=== PATIENT | female | born 1935 | race Hispanic/Latino ===

== ENCOUNTER 2017-11-16 14:23 | Emergency (ER) | payer MEDICARE ==
[2017-11-16 15:05] LABS: BASOPHILS % (AUTO) 0.5 % (0.0-5.0); EOSINOPHILS % (AUTO) 0.7 % (0.0-8.0); MEAN CORPUSCULAR HGB CONC 33.9 g/dL (32.0-36.0); MEAN CORPUSCULAR VOLUME 88.3 fL (79-99); MONOCYTES % (AUTO) 7.5 % (3.0-13.0); NEUTROPHILS % (AUTO) 73.3 % (40.0-77.0); PLATELET COUNT (AUTO) 256 K/uL (130-400); RED BLOOD CELL COUNT(AUTO) 3.97 MIL/uL (4.00-5.50); RED CELL DISTRIBUTION WIDTH 14.1 % (11.0-15.5); WHITE BLOOD COUNT (AUTO) 12.8 K/uL (4.8-10.8)
[2017-11-16 15:11] LABS: APPEARANCE,URINE Clear (CLEAR); BILIRUBIN,URINE Negative (NEGATIVE); COLOR,URINE STRAW (YELLOW); GLUCOSE, URINE (UA) Negative (NEGATIVE); KETONES,URINE Negative (NEGATIVE); LEUKOCYTE ESTERASE ,URINE Small (NEGATIVE); NITRATE,URINE Negative (NEGATIVE); OCCULT BLOOD,URINE Negative (NEGATIVE); PH,URINE 6.5 (5.0-8.0); PROTEIN,URINE Negative (NEGATIVE); UROBILINOGEN,URINE 0.2 mg/dL (0.2-1.0)
[2017-11-16 15:16] LABS: INR 0.9 (0.85-1.15); PARTIAL THROMBOPLASTIN TIME 26.6 SEC (26.3-35.5); PROTHROMBIN TIME 9.5 SEC (9.6-11.6)
[2017-11-16 15:18] LABS: ALBUMIN 3.5 g/dL (3.5-5.0); BILIRUBIN,TOTAL 0.1 mg/dL (0.2-1.0); TOTAL PROTEIN, SERUM 7.4 g/dL (6.0-8.3)
[2017-11-16 15:42] LABS: BACTERIA,URINE Rare /HPF (None Seen); RBC,URINE None Seen /HPF (0-1); SQUAMOUS EPITHELIAL CELL,UR 0-2 /HPF (0-2); WBC,URINE 0-1 /HPF (0-1)
[2017-11-16] MEDS ORDERED: POTASSIUM BICARB/CIT AC 25 MEQ TABLET.EFF ONE (15:46)
[2017-11-16] MEDS ORDERED: LORAZEPAM 2 MG/ML 1 ML VIAL ONE (15:47)
[2017-11-16] MEDS ORDERED: ACETAMINOPHEN EXTRA STRENGTH 500 MG TABLET ONE (17:21)
== END 2017-11-16 18:40 | disposition home or self-care (01) ==
LOC: EDH 14:23
DX: I10 Essential (primary) hypertension (principal); M79.7 Fibromyalgia; R79.1 Abnormal coagulation profile; F41.9 Anxiety disorder, unspecified; Z79.899 Other long term (current) drug therapy
CPT/HCPCS: 36415; 80053; 81001; 84484; 85025; 85610; 85730; 93005; 96374; 99285; J2060

== ENCOUNTER → 2018-07-22 | Outpatient (CLI) | payer MEDICARE | END | disposition home or self-care (01) | LOC: RAH 12:50 | PROVIDERS: ATTEND Family Medicine | DX: R51 Headache (principal) | CPT/HCPCS: 70450 ==

== ENCOUNTER 2021-10-17 21:20 | Emergency (ER) | payer MEDICARE ==
[~2021-10-17] VITALS: Ht 149.9 cm; Wt 63.5 kg
[2021-10-17 21:50] LABS: BASOPHILS % (AUTO) 0.2 % (0.0-5.0); EOSINOPHILS % (AUTO) 1.1 % (0.0-8.0); HEMATOCRIT 37.7 % (36-48); LYMPHOCYTES % (AUTO) 2.9 % (21.0-51.0); MEAN CORPUSCULAR HEMOGLOBIN 29.1 pg (27.0-33.0); MEAN CORPUSCULAR HGB CONC 31.8 g/dL (32.0-36.0); MEAN CORPUSCULAR VOLUME 91.5 fL (79-99); MONOCYTES % (AUTO) 6.1 % (3.0-13.0); NEUTROPHILS % (AUTO) 89.2 % (40.0-77.0); PLATELET COUNT (AUTO) 264 K/uL (130-400); RED BLOOD CELL COUNT(AUTO) 4.12 MIL/uL (4.00-5.50); RED CELL DISTRIBUTION WIDTH 13.9 % (11.0-15.5); WHITE BLOOD COUNT (AUTO) 18.5 K/uL (4.8-10.8)
[2021-10-17 21:59] LABS: POTASSIUM 3.8 mmol/L (3.5-5.1)
[2021-10-17 22:02] LABS: APPEARANCE,URINE Clear (CLEAR); BILIRUBIN,URINE Negative (NEGATIVE); COLOR,URINE Yellow (YELLOW); GLUCOSE, URINE (UA) Negative (NEGATIVE); KETONES,URINE Negative (NEGATIVE); LEUKOCYTE ESTERASE ,URINE Negative (NEGATIVE); NITRATE,URINE Negative (NEGATIVE); OCCULT BLOOD,URINE Negative (NEGATIVE); PROTEIN,URINE POS 1+ mg/dL (NEGATIVE)
[2021-10-17 22:04] LABS: ALBUMIN 3.7 g/dL (3.5-5.0); BILIRUBIN,TOTAL 0.6 mg/dL (0.2-1.0); TOTAL PROTEIN, SERUM 7.3 g/dL (6.0-8.3)
[2021-10-17 22:13] LABS: BACTERIA,URINE Rare /HPF (None Seen); MUCUS,URINE Few LPF (None Seen); RBC,URINE 0-1 /HPF (0-1); SQUAMOUS EPITHELIAL CELL,UR Rare /HPF (0-2); WBC,URINE 0-1 /HPF (0-1)
[2021-10-17] MEDS: KETOROLAC 15MG/ML VIAL (15MG/ML) IV ONE (22:58)
[2021-10-17] MEDS: ONDANSETRON 4MG INJ IVP ONE (22:58)
[2021-10-17] MEDS: 0.9%NACL 1000ML 1,000 ML IV ONE (22:58)
[2021-10-17] MEDS: MORPHINE 2 MG SYG IVP ONE (22:58)
[2021-10-17 23:42] VITALS: BP 160/46
[2021-10-18] MEDS ORDERED: ONDA4TAB10 PO (00:28)
[2021-10-18] MEDS ORDERED: ACET-66 PO (00:28)
== END 2021-10-18 00:44 | disposition home or self-care (01) ==
LOC: EDH 21:20
DX: A05.9 Bacterial foodborne intoxication, unspecified (principal); E86.0 Dehydration; I10 Essential (primary) hypertension; Z88.0 Allergy status to penicillin; Z88.1 Allergy status to other antibiotic agents; Z88.2 Allergy status to sulfonamides; Z79.1 Long term (current) use of non-steroidal anti-inflammatories (NSAID)
CPT/HCPCS: 36415; 80053; 81001; 83690; 85025; 96374; 96375; 99284; J1885; J2405

== ENCOUNTER 2022-03-03 14:20 | Emergency (ER) | payer MEDICARE, OTHER ==
[~2022-03-03] VITALS: Ht 144.8 cm; Wt 60.8 kg
[~2022-03-03 14:20] MED LIST: ACET-66 PO; ONDA4TAB10 PO
[2022-03-03] MEDS ORDERED: ACETAMINOPHEN 500 MG TABLET PO SCH (14:37)
[2022-03-03] MEDS ORDERED: BACITRACIN 1 EACH PACKET TP ONE (15:34)
[2022-03-03] MEDS ORDERED: NAPR375T6 PO (15:44)
[2022-03-03 15:48] VITALS: BP 139/91
== END 2022-03-03 16:01 | disposition home or self-care (01) ==
LOC: EDH 14:20
DX: S86.912A Strain of unspecified muscle(s) and tendon(s) at lower leg level, left leg, initial encounter (principal); S76.912A Strain of unspecified muscles, fascia and tendons at thigh level, left thigh, initial encounter; M54.50 Low back pain, unspecified; I10 Essential (primary) hypertension; Z79.899 Other long term (current) drug therapy; Z88.0 Allergy status to penicillin; Z88.1 Allergy status to other antibiotic agents; Z88.2 Allergy status to sulfonamides; W18.39XA Other fall on same level, initial encounter; Y93.89 Activity, other specified; Y92.89 Other specified places as the place of occurrence of the external cause; Y99.8 Other external cause status
CPT/HCPCS: 72100; 73502; 73562

== ENCOUNTER 2024-07-16 09:46 | Emergency (ER) | payer OTHER, MEDICARE ==
[~2024-07-16] VITALS: Ht 152.4 cm; Wt 54.4 kg
[~2024-07-16 09:46] MED LIST changes: +ACET-2247 PO; -ACET-66 PO; +ALPR0.5T8 PO; +ASPI-1197 PO; +ATOR40TA71 PO; +BUSP5TAB3 PO; +DOCU100C33 PO; +DONE5TAB5 PO; +FAMO20TA8 PO; +FERS325 PO; +FURO40TA5 PO; +GABA-529 PO; +HYDR-3421 PO; +ISOS30TA11 PO; +LACT10SO9 PO; +MEGE40TA8 PO; +MEMANtine HCL 5 MG TABLET PO; +METO25TA6 PO; +NITR0.4T50 SL; +ONDA-104 PO; -ONDA4TAB10 PO; +PANT20TA18 PO; +POTA10CA95 PO; +[UNRECOGNIZED DRUG - OTHER]
--- NOTE | 2024-07-16 10:17 | ERN ---
ED Note History of Present Illness Stated Complaint: ALTERED MENTAL STATUS Chief Complaint: Altered Mental Status Time Seen by MD: 10:03 Dictation: PATIENT IS AN 88-YEAR-OLD FEMALE HERE VIA EMS WITH COMPLAINTS OF HAVING ALTERED MENTAL STATUS WHILE AT THE [facility]. PATIENT IS UNABLE TO PROVIDE ANY HISTORY. PER EMS, PATIENT WAS FOUND LETHARGIC WITH PINPOINT PUPILS, THEY GAVE HER NARCAN AND SHE PERKED UP. PATIENT CURRENTLY ALERT WE WILL ANSWER SIMPLE QUESTIONS AND DENIES PAIN HOWEVER UNABLE TO PROVIDE ANY EXTENSIVE HISTORY. 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 Allergies: Coded Allergies: Penicillins (Unverified Allergy, Unknown, 10/17/21) Sulfa (Sulfonamide Antibiotics) (Unverified Allergy, Unknown, 10/17/21) bisacodyl (Unverified Allergy, Unknown, 10/17/21) ciprofloxacin (Unverified Allergy, Unknown, 10/17/21) doxycycline (Unverified Allergy, Unknown, 10/17/21) egg (Unverified Allergy, Unknown, 10/17/21) influenza virus vacc trivalent, split (Unverified Allergy, Unknown, 10/17/21) levofloxacin (Unverified Allergy, Unknown, 10/17/21) Home Meds Active Scripts [MEMANtine HCL 5 MG TABLET] 5 MG TABLET No Conflict Check, 10 MG PO BID for 30 Days, #60 TAB 0 Refills Prov:ELIEZER RUSSELL TRIMMER MACHINE OPERATOR 05/14/24 Donepezil HCl (Aricept 5Mg Tab) 5 Mg Tab, 5 MG PO HS, #30 TAB Prov:ELIEZER RUSSELL TRIMMER MACHINE OPERATOR 05/14/24 Reported Medications Acetaminophen (Tylenol) 325 Mg Tablet, 650 MG PO Q4HPRN PRN for PAIN LEVEL 2 TO 5, TAB 05/12/24 Potassium Chloride (Potassium Chloride) 10 Meq Capsule.er, 1 CAP PO DAILY, 0 Refills 05/12/24 Pantoprazole Sodium (Pantoprazole Sodium) 20 Mg Tablet.dr, 1 TAB PO DAILY, TAB 0 Refills 05/12/24 Ondansetron HCl (Ondansetron HCl) 4 Mg Tablet, 1 TAB PO Q6HPRN PRN for nausea/vomiting 05/12/24 Nitroglycerin (Nitroglycerin) 0.4 Mg Tab.subl, 1 TAB SL AD for chest pain 1st sign of attack; may repeat every 5 mins; if pain persists after 3 in 15 min, medical attention is recommended 05/12/24 Metoprolol Tartrate (Metoprolol Tartrate) 25 Mg Tablet, 1 TAB PO BID 05/12/24 Megestrol Acetate (Megace) 40 Mg Tab, 400 MG PO DAILY, TAB 05/12/24 [maalox ad] No Conflict Check 05/12/24 Lactulose (Lactulose) 20 Gram/30 Ml Solution, 30 ML PO TID PRN for CONSTIPATION 05/12/24 Isosorbide Dinitrate (Isosorbide Dinitrate) 30 Mg Tablet, 1 TAB PO DAILY for chest pain 05/12/24 Hydroxyzine HCl (Hydroxyzine HCl) 25 Mg Tablet, 1 TAB PO TID for anxiety 05/12/24 Gabapentin (Gabapentin) 100 Mg Capsule, 100 MG PO HS, CAP 05/12/24 Furosemide (Furosemide) 40 Mg Tablet, 1 TAB PO BIDRESP 05/12/24 Ferrous Sulfate (Ferrous Sulfate) 325 Mg (65 Mg Iron) Ectab, 1 TAB PO DAILY 05/12/24 Buspirone HCl (Buspirone HCl) 5 Mg Tablet, 5 MG PO TID, TAB 05/12/24 Atorvastatin Calcium (Atorvastatin Calcium) 40 Mg Tablet, 1 TAB PO HS 05/12/24 Aspirin (Aspirin) 81 Mg Tab.chew, 1 TAB PO DAILY 05/12/24 Alprazolam (Alprazolam) 0.5 Mg Tablet, 0.25 MG PO Q24H PRN for AGITATION, TAB 04/02/24 Docusate Sodium (Docusate Sodium) 100 Mg Capsule, 100 MG PO HS PRN for CONST IPATION, CAP 04/02/24 Famotidine (Famotidine) 20 Mg Tablet, 20 MG PO BID, TAB 04/02/24 Past Medical History Past Medical History: Dementia, High Cholesterol, Hypertension Surgical History: Unknown Social History: Negative, Lives with family History: Not Applicable RN Note Reviewed/Agreed w/PFSH: Yes Review of System Dictation CONSTITUTIONAL: NEGATIVE EXCEPT FOR HPI AMS HEAD/FACE: NEGATIVE EXCEPT FOR HPI EENT: NEGATIVE EXCEPT FOR HPI RESPIRATORY: NEGATIVE EXCEPT FOR HPI GASTROINTESTINAL/ABDOMINAL: NEGATIVE EXCEPT FOR HPI GENITOURINARY: NEGATIVE EXCEPT FOR HPI MUSCULOSKELETAL: NEGATIVE EXCEPT FOR HPI INTEGUMENTARY: NEGATIVE EXCEPT FOR HPI NEUROLOGICAL/PSYCH: NEGATIVE EXCEPT FOR HPI HEMATOLOGIC/LYMPHATIC: NEGATIVE EXCEPT FOR HPI ALL SYSTEMS NEGATIVE, EXCEPT NOTED ABOVE. 13 POINT REVIEW OF SYSTEMS ASSESSED AND ALL NEGATIVE EXCEPT FOR ABOVE. Initial Vital Sign VS Vital Signs Date Time Temp Pulse Resp B/P (MAP) Pulse Ox O2 Delivery O2 Flow Rate FiO2 07/16/24 09:48 98.2 49 18 149/54 97 Room Air 0 07/16/24 10:29 21 Physical Exam Dictation VITAL SIGNS REVIEWED GENERAL APPEARANCE: ALERT, ORIENTED ONE, NO ACUTE DISTRESS, APPEARS WEAK AND DEBILITATED HEAD AND FACE: NON-TRAUMATIC. EYES: PERRL, PINK CONJUNCTIVAS, EYELID NO TRAUMA, ANTERIOR CHAMBER WITH ARCUS SENILIS. EARS: PINNAS INTACT AND NO SIGNS OF TRAUMA OR ERYTHEMA EAR CANALS CLEAR AND NO DISCHARGE TM NO ERYTHEMA NOSE: NO DISCHARGE, NO BLEEDING. OROPHARYNX: MOUTH NORMAL, TONGUE PINK, PHARYNX CLEAR,NO ERYTHEMA, TONSILS NO EXUDATES, NO ABSCESSES NOTED, MUCOUS MEMBRANE MOIST NECK: SUPPLE, NON-TENDER, NO THYROMEGALY, NO MASSES, NO JVD, NO BRUITS BREAST:DEFERRED CHEST:NO TENDERNESS, NO CREPITUS, NO PARADOXICAL MOVEMENT, NO RETRACTIONS LUNGS:CLEAR, WELL-VENTILATED, SYMMETRIC, NO RALES, NO WHEEZING, NO RHONCHI, NO STRIDOR, GOOD BREATH SOUNDS BILATERALLY HEART: REGULAR RATE, REGULAR RHYTHM, NO MURMUR, NO GALLOPS VASCULAR: NO PERIPHERAL EDEMA, ABDOMEN: SOFT, POSITIVE BOWEL SOUNDS, NONDISTENDED, NO GUARDING, NONTENDER, NO REBOUND, NO MASSES NO HEPATOMEGALY, NO SPLENOMEGALY, NO RUIZ'S SIGN, NO HERNIAS. RECTAL: DEFERRED GENITAL: DEFERRED NEUROLOGICAL: NORMAL SPEECH, MOTOR FUNCTION INTACT, SENSORY FUNCTION INTACT GB WM ALL EXTREMITIES MUSCULOSKELETAL: NECK NONTENDER, FULL RANGE OF MOTION, BACK NONTENDER, FULL RANGE OF MOTION, EXTREMITIES: NONTENDER, FULL RANGE OF MOTION SKIN: COLOR PINK, DRY, NO TURGOR, NO RASH, NO LACERATIONS, NO ABRASIONS, NO CONTUSIONS. LYMPHATIC: DEFERRED Results (Laboratory/Radiology) Laboratory/Radiology Laboratory Tests Test 07/16/24 10:51 07/16/24 11:45 White Blood Count 6.2 K/uL (4.8-10.8) Red Blood Count 3.09 MIL/uL (4.00-5.50) L Hemoglobin 9.8 g/dL (12.0-16.0) L Hematocrit 30.2 % (36-48) L Mean Corpuscular Volume 97.7 fL (79-99) Mean Corpuscular Hemoglobin 31.7 pg (27.0-33.0) Mean Corpuscular Hemoglobin Concent 32.5 g/dL (32.0-36.0) Red Cell Distribution Width 14.6 % (11.0-15.5) Platelet Count 183 K/uL (130-400) Mean Platelet Volume 12.5 fL (7.5-10.5) H Immature Granulocyte % (Auto) 0.5 % (0-1) Neutrophils (%) (Auto) 56.9 % (40.0-77.0) Lymphocytes (%) (Auto) 25.4 % (21.0-51.0) Monocytes (%) (Auto) 8.9 % (3.0-13.0) Eosinophils (%) (Auto) 7.6 % (0.0-8.0) Basophils (%) (Auto) 0.7 % (0.0-5.0) Neutrophils # (Auto) 3.5 K/uL (1.8-7.7) Lymphocytes # (Auto) 1.6 K/uL (1.0-4.8) Monocytes # (Auto) 0.6 K/uL (0.1-1.0) Eosinophils # (Auto) 0.47 K/uL (0.00-0.70) Basophils # (Auto) 0.04 K/uL (0.00-0.20) Absolute Immature Granulocyte (auto 0.03 K/uL (0-1) Nucleated Red Blood Cells 0.0 % (0.0-0.19) Sodium Level 147 mmol/L (136-145) H Potassium Level 3.3 mmol/L (3.5-5.1) L Chloride Level 111 mmol/L (101-111) Carbon Dioxide Level 31 mmol/L (21-32) Blood Urea Nitrogen 16 mg/dL (7-18) Creatinine 1.5 mg/dL (0.5-1.0) H Glomerular Filtration Rate Calc 34 mL/min (>90) Random Glucose 108 mg/dL (70-105) H Total Calcium 8.5 mg/dL (8.5-10.1) Troponin I High Sensitivity 45 ng/L (4-50) Urine Color COLORLESS (YELLOW) Urine Appearance CLEAR (CLEAR) Urine pH 6.5 (5.0-8.0) Urine Specific [place] 1.007 (1.001-1.031) Urine Protein NEGATIVE mg/dL (NEGATIVE) Urine Glucose (UA) NEGATIVE mg/dL (NEGATIVE) Urine Ketones NEGATIVE mg/dL (NEGATIVE) Urine Occult Blood NEGATIVE (NEGATIVE) Urine Nitrate NEGATIVE (NEGATIVE) Urine Bilirubin NEGATIVE mg/dL (NEGATIVE) Urine Urobilinogen 0.2 mg/dL (0.2-1.0) Urine Leukocyte Esterase NEGATIVE Nico/uL Labs Reviewed?: Yes EKG Comment: EKG SINUS BRADYCARDIA/HEART RATE 48/AXIS NORMAL/EARLY REPOLARIZATION SEEN IN ANTERIOR LEADS ED Course ED Course Orders Procedure Category Date Status Time Straight Cath If No CPOE 07/16/24 Transmitted Void X6hrs 10:14 Cbc With Differential LAB 07/16/24 Complete 10:14 Troponin I High LAB 07/16/24 Complete Sensitivity 10:14 Urinalysis Profile LAB 07/16/24 Complete 10:14 12 Lead Ekg Tracing- EKG 07/16/24 Logged Technical 10:14 Chest 1vw RAD 07/16/24 Resulted 10:14 Basic Metabolic Panel LAB 07/16/24 Complete 10:14 Potassium Bicarb/Cit PHA 07/16/24 Complete Ac 25meq (K-Lyte Ta 11:30 Current Medications Medications (Trade) Dose Ordered Sig/Sonali Route PRN Reason Start Time Stop Time Status Last Admin Dose Admin Potassium Bicarbonate (K-Lyte Tablet Eff 25 Meq Tablet.eff) 25 meq ONCE ONCE PO 07/16/24 11:30 07/16/24 11:32 DC 07/16/24 11:35 Vital Signs Date Time Temp Pulse Resp B/P (MAP) Pulse Ox O2 Delivery O2 Flow Rate FiO2 07/16/24 11:48 97.5 51 16 128/50 98 Room Air* 0 21 07/16/24 10:29 52 16 139/55 96 Room Air* 0 21 07/16/24 09:48 98.2 49 18 149/54 97 Room Air 0 1207, PATIENT IS HEMODYNAMICALLY STABLE AFEBRILE. MILD HYPOKALEMIA, REPLACED WITH P.O.. NO ABNORMAL FINDINGS AND WE WILL BE RETURNED HOME TO [facility]. HEART Score Response (Comments) Value EKG: Repolarization changes 1 Age: > 65yrs (+2) 2 Initial Troponin: Normal limit (0) 0 Total 3 Medical Decision Making MDM MDM: DIFFERENTIAL DIAGNOSIS: ACS/AMI/SEPSIS/ELECTROLYTE IMBALANCE/DEHYDRATION/UTI/PNEUMONIA/HISTORY OF DEMENTIA RATIONALE: TESTS CONSIDERED AND ORDERED SECONDARY TO SHARED DECISION MAKING INCLUDE: LABS/EKG/RADIOLOGY PREVIOUS OUTSIDE RECORDS REVIEWED: OLD ER VISITS. REVIEWED LAST VISIT [facility] [place] 07/06 RISK OF COMPLICATION AND/OR MORBIDITY OR MORTALITY OF PATIENT MANAGEMENT: NONE MEDICATIONS-PER MEDICATION RECONCILIATION NEED FOR HOSPITALIZATION: PATIENT DOES NOT MEET CRITERIA FOR HOSPITALIZATION. NO NEED FOR EMERGENCY MAJOR/MINOR SURGERY: NO THERE ARE NO SOCIAL CONCERNS WITH THIS PATIENT. PRESCRIPTION DRUG MANAGEMENT NONE PRESCRIPTIONS WILL INCLUDE SYMPTOMATIC CARE PATIENT'S PRIOR EXTERNAL MEDICAL RECORDS FROM OTHER ER VISITS WERE REVIEWED BY ME INDICATED. PRIOR TESTING AND RESULTS FROM PREVIOUS VISITS WERE REVIEWED. PRIOR TESTS WERE TAKEN INTO ACCOUNT WITH MEDICAL DECISION MAKING AND RESOURCE UTILIZATION, INDEPENDENT HISTORIAN/HISTORIANS WERE USED TO OBTAIN COMPLETE MEDICAL HISTORY. I INDEPENDENTLY INTERPRETED THE TEST THAT WERE PERFORMED, RESULTS WERE REVIEWED BY ME AND CONSIDERED FINDINGS ON RADIOLOGY IF ORDERED. MEDICAL MANAGEMENT AND EXAMINATION INTERPRETATION DISCUSSIONS WERE HAD BY ME WITH OTHER QUALIFIED HEALTHCARE PROFESSIONALS INDICATED FOR THE PATIENT'S CARE. DX & DISP Disposition: Discharge Departure Impression: Primary Impression: Hypokalemia Additional Impressions: Dehydration, Dementia Condition: Stable Additional Instructions: FOLLOW-UP WITH PRIMARY CARE PROVIDER IN 1 TO 2 DAYS. TAKE MEDICATIONS DIRECTED HERE IN THE EMERGENCY ROOM. OKAY TO CONTINUE HOME MEDICATIONS UNLESS OTHERWISE DISCUSSED DURING YOUR VISIT IN THE EMERGENCY ROOM TODAY. RETURN TO YOUR NEAREST EMERGENCY ROOM IF SYMPTOMS WORSEN OR IF THERE IS NO IMPROVEMENT. CALL 911 IF YOU NEED IMMEDIATE ASSISTANCE. TAKE TYLENOL OR MOTRIN [id number] NEEDED AND IF NO CONTRAINDICATIONS ARE PRESENT. INCREASE ORAL HYDRATION. A WOUND CULTURE OR URINE CULTURE WAS ORDERED HERE IN THE EMERGENCY ROOM DEPARTMENT PLEASE FOLLOW-UP WITH PRIMARY CARE PROVIDER AND ADVISE THEM TO GET REPEAT PORTS FROM OUR FACILITY. IF YOU HAD ANY BETHANY WRAP/SPLINTS THAT WERE APPLIED HERE, PLEASE DO NOT REMOVE THEM UNTIL YOU SEE YOUR PRIMARY CARE OR SPECIALTY. Referrals: PRANAV XIE MD (PCP) Time of Disposition: 12:09 I have reviewed the case, and I agree with, Diagnosis and Plan LC WRAY NP Jul 16, 2024 10:16
[2024-07-16 11:08] LABS: BASOPHILS # (AUTO) 0.04 K/uL (0.00-0.20); BASOPHILS % (AUTO) 0.7 % (0.0-5.0); EOSINOPHILS # (AUTO) 0.47 K/uL (0.00-0.70); EOSINOPHILS % (AUTO) 7.6 % (0.0-8.0); HEMATOCRIT 30.2 % (36-48); IMMATURE GRANULOCYTE ABSOLUTE 0.03 K/uL (0-1); LYMPHOCYTES # (AUTO) 1.6 K/uL (1.0-4.8); LYMPHOCYTES % (AUTO) 25.4 % (21.0-51.0); MEAN CORPUSCULAR HEMOGLOBIN 31.7 pg (27.0-33.0); MEAN CORPUSCULAR HGB CONC 32.5 g/dL (32.0-36.0); MEAN CORPUSCULAR VOLUME 97.7 fL (79-99); MONOCYTES # (AUTO) 0.6 K/uL (0.1-1.0); MONOCYTES % (AUTO) 8.9 % (3.0-13.0); NEUTROPHILS # (AUTO) 3.5 K/uL (1.8-7.7); NEUTROPHILS % (AUTO) 56.9 % (40.0-77.0); PLATELET COUNT (AUTO) 183 K/uL (130-400); RED BLOOD CELL COUNT(AUTO) 3.09 MIL/uL (4.00-5.50); RED CELL DISTRIBUTION WIDTH 14.6 % (11.0-15.5); WHITE BLOOD COUNT (AUTO) 6.2 K/uL (4.8-10.8)
[2024-07-16 11:10] LABS: CREATININE 1.5 mg/dL (0.5-1.0); POTASSIUM 3.3 mmol/L (3.5-5.1)
--- NOTE | 2024-07-16 11:22 | HMCIMG ---
INDICATION: SOB TECHNIQUE: CHEST 1VW COMPARISON: 07/11/2024 FINDINGS/IMPRESSION: Prominent bilateral interstitial markings which may represent bronchitis or vascular congestion in the proper clinical setting. Cardiac silhouette is within normal limits. Mild degenerative changes of the spine. The visualized upper abdomen appears unremarkable.
[2024-07-16] MEDS: PoTASSium BIcarbonate/CIT AC 25 MEQ TABLET.EFF PO ONE (11:35)
[2024-07-16 11:53] LABS: APPEARANCE,URINE CLEAR (CLEAR); BILIRUBIN,URINE NEGATIVE (NEGATIVE); COLOR,URINE COLORLESS (YELLOW); GLUCOSE, URINE (UA) NEGATIVE (NEGATIVE); KETONES,URINE NEGATIVE (NEGATIVE); LEUKOCYTE ESTERASE ,URINE NEGATIVE Leu/uL (NEGATIVE); NITRATE,URINE NEGATIVE (NEGATIVE); OCCULT BLOOD,URINE NEGATIVE (NEGATIVE); PH,URINE 6.5 (5.0-8.0); PROTEIN,URINE NEGATIVE (NEGATIVE); UROBILINOGEN,URINE 0.2 mg/dL (0.2-1.0)
[2024-07-16 11:58] LABS: ADD UA MICROSCOPIC NO
--- NOTE | 2024-07-16 13:33 | NUR ---
REPORT CALLED TO [facility], SPOKE TO ANAIS VARELA.
--- NOTE | 2024-07-16 13:34 | NUR ---
[facility] AT BEDSIDE FOR TRANSFER TO [facility]
[2024-07-16 13:35] VITALS: BP 154/52; PULSE 54; RESP 16; TEMP 98; O2SAT 99
--- NOTE | 2024-07-16 15:25 | EKG ---
[facility] Test Date: 2024-07-16 Test Time: 10:37:16 Pat Name: LARISSA MARIN Department: [facility] Room: Gender: F Court Commissioner: [id number] : [phone] Requested By: LC WRAY Order Number: [id number] Reading MD: Tarun Cole Measurements Intervals Holt Rate: 48 P: 35 AR: 149 QRS: 15 QRSD: 89 T: 28 QT: 537 QTc: 479 Interpretive Statements Sinus bradycardia Repol abnrm suggests ischemia, anterolateral Compared to ECG 07/06/2024 10:26:32 Sinus rhythm no longer present Ventricular premature complex(es) no longer present Possible ischemia still present Electronically Signed On 07-16-2024 17:02:33 SAWMILL MOULDER OPERATOR by Tarun Cole Please click the below link to view image of tracing.
== END 2024-07-16 13:39 ==
LOC: EDH 09:46
DX: E87.6 Hypokalemia (principal); E86.0 Dehydration; F03.90 Unspecified dementia, unspecified severity, without behavioral disturbance, psychotic disturbance, mood disturbance, and anxiety; E78.00 Pure hypercholesterolemia, unspecified; I10 Essential (primary) hypertension; Z79.82 Long term (current) use of aspirin; Z79.899 Other long term (current) drug therapy; Z88.0 Allergy status to penicillin; Z88.1 Allergy status to other antibiotic agents; Z88.2 Allergy status to sulfonamides
CPT/HCPCS: 36415; 71045; 80048; 81003; 84484; 85025; 93005; 99285

== ENCOUNTER 2024-11-19 08:51 | Observation (INO) | payer OTHER, MEDICARE ==
[2024-11-19] VITALS (7 sets, daily range): BP systolic 150–166; BP diastolic 57–86; PULSE 77–93; RESP 18–20; TEMP 98.3–98.4; O2SAT 97
[~2024-11-19] VITALS: Ht 152.4 cm; Wt 52.2 kg
[~2024-11-19 08:51] MED LIST changes: +MEGE40TA30 PO; -MEGE40TA8 PO
[2024-11-19 09:25] LABS: BASOPHILS # (AUTO) 0.03 K/uL (0.00-0.20); BASOPHILS % (AUTO) 0.3 % (0.0-5.0); EOSINOPHILS # (AUTO) 0.12 K/uL (0.00-0.70); EOSINOPHILS % (AUTO) 1.2 % (0.0-8.0); IMMATURE GRANULOCYTE ABSOLUTE 0.04 K/uL (0-1); LYMPHOCYTES # (AUTO) 1.1 K/uL (1.0-4.8); LYMPHOCYTES % (AUTO) 11.3 % (21.0-51.0); MEAN CORPUSCULAR HEMOGLOBIN 31.8 pg (27.0-33.0); MEAN CORPUSCULAR HGB CONC 33.1 g/dL (32.0-36.0); MEAN CORPUSCULAR VOLUME 95.9 fL (79-99); MONOCYTES # (AUTO) 1.6 K/uL (0.1-1.0); MONOCYTES % (AUTO) 16.3 % (3.0-13.0); NEUTROPHILS # (AUTO) 6.9 K/uL (1.8-7.7); NEUTROPHILS % (AUTO) 70.5 % (40.0-77.0); PLATELET COUNT (AUTO) 207 K/uL (130-400); RED BLOOD CELL COUNT(AUTO) 3.65 MIL/uL (4.00-5.50); RED CELL DISTRIBUTION WIDTH 13.3 % (11.0-15.5); WHITE BLOOD COUNT (AUTO) 9.8 K/uL (4.8-10.8)
[2024-11-19 09:38] LABS: INR 1.04 (0.85-1.15)
[2024-11-19 09:40] LABS: PARTIAL THROMBOPLASTIN TIME 29.3 SEC (26.3-35.5)
[2024-11-19 09:44] LABS: CREATININE 1.7 mg/dL (0.5-1.0); MAGNESIUM 2.3 mg/dL (1.80-2.40); POTASSIUM 3.2 mmol/L (3.5-5.1)
--- NOTE | 2024-11-19 09:45 | HMCIMG ---
CHEST 1VW HISTORY: Chest pain COMPARISON: 07/16/2024 FINDINGS: A frontal projection of the chest was obtained. No acute pulmonary infiltrates is seen. The heart is borderline enlarged. Aortic calcifications are seen. Degenerative changes are seen IMPRESSION: 1. No acute pulmonary infiltrate is seen.
--- NOTE | 2024-11-19 09:55 | ERN ---
General Chief Complaint: Hypotension Stated Complaint: HYPOTENSION Time Seen by MD: 08:53 Source: patient History of Present Illness Initial Comments PATIENT IS A AN 89-YEAR-OLD FEMALE COMING IN TO BE EVALUATED FOR HYPOTENSION. PER EMS PATIENT WAS HE WAS REPORTEDLY HAVING LOW BLOOD PRESSURE EARLIER TODAY. EMS REPORTS BLOOD PRESSURE HAS BEEN WITHIN NORMAL LIMITS. PATIENT WAS A HALF-WAY RESIDENT IN HIS MULTIPLE COMORBIDITIES. PATIENT DOES HAS A HISTORY OF DEMENTIA SO WAS VERY LIMITED ON HISTORY. Allergies: Coded Allergies: Penicillins (Unverified Allergy, Unknown, 10/17/21) Sulfa (Sulfonamide Antibiotics) (Unverified Allergy, Unknown, 10/17/21) bisacodyl (Unverified Allergy, Unknown, 10/17/21) ciprofloxacin (Unverified Allergy, Unknown, 10/17/21) doxycycline (Unverified Allergy, Unknown, 10/17/21) egg (Unverified Allergy, Unknown, 10/17/21) influenza virus vacc trivalent, split (Unverified Allergy, Unknown, 10/17/21) levofloxacin (Unverified Allergy, Unknown, 10/17/21) Home Meds Active Scripts [MEMANtine HCL 5 MG TABLET] 5 MG TABLET No Conflict Check, 10 MG PO BID for 30 Days, #60 TAB 0 Refills Prov:ELIEZER RUSSELL [employer] 05/14/24 Donepezil HCl (Aricept 5Mg Tab) 5 Mg Tab, 5 MG PO HS, #30 TAB Prov:ELIEZER RUSSELL [employer] ENGINE[employer] 05/14/24 Reported Medications Acetaminophen (Tylenol) 325 Mg Tablet, 650 MG PO Q4HPRN PRN for PAIN LEVEL 2 TO 5, TAB 05/12/24 Potassium Chloride (Potassium Chloride) 10 Meq Capsule.er, 1 CAP PO DAILY, 0 Refills 05/12/24 Pantoprazole Sodium (Pantoprazole Sodium) 20 Mg Tablet.dr, 1 TAB PO DAILY, TAB 0 Refills 05/12/24 Ondansetron HCl (Ondansetron HCl) 4 Mg Tablet, 1 TAB PO Q6HPRN PRN for nausea/vomiting 05/12/24 Nitroglycerin (Nitroglycerin) 0.4 Mg Tab.subl, 1 TAB SL AD for chest pain 1st sign of attack; may repeat every 5 mins; if pain persists after 3 in 15 min, medical attention is recommended 05/12/24 Metoprolol Tartrate (Metoprolol Tartrate) 25 Mg Tablet, 1 TAB PO BID 05/12/24 Megestrol Acetate (Megace) 40 Mg Tab, 400 MG PO DAILY, TAB 05/12/24 [maalox ad] No Conflict Check 05/12/24 Lactulose (Lactulose) 20 Gram/30 Ml Solution, 30 ML PO TID PRN for CONSTIPATION 05/12/24 Isosorbide Dinitrate (Isosorbide Dinitrate) 30 Mg Tablet, 1 TAB PO DAILY for chest pain 05/12/24 Hydroxyzine HCl (Hydroxyzine HCl) 25 Mg Tablet, 1 TAB PO TID for anxiety 05/12/24 Gabapentin (Gabapentin) 100 Mg Capsule, 100 MG PO HS, CAP 05/12/24 Furosemide (Furosemide) 40 Mg Tablet, 1 TAB PO BIDRESP 05/12/24 Ferrous Sulfate (Ferrous Sulfate) 325 Mg (65 Mg Iron) Ectab, 1 TAB PO DAILY 05/12/24 Buspirone HCl (Buspirone HCl) 5 Mg Tablet, 5 MG PO TID, TAB 05/12/24 Atorvastatin Calcium (Atorvastatin Calcium) 40 Mg Tablet, 1 TAB PO HS 05/12/24 Aspirin (Aspirin) 81 Mg Tab.chew, 1 TAB PO DAILY 05/12/24 Alprazolam (Alprazolam) 0.5 Mg Tablet, 0.25 MG PO Q24H PRN for AGITATION, TAB 04/02/24 Docusate Sodium (Docusate Sodium) 100 Mg Capsule, 100 MG PO HS PRN for CONSTIPATION, CAP 04/02/24 Famotidine (Famotidine) 20 Mg Tablet, 20 MG PO BID, TAB 04/02/24 Past Medical History Past Medical History: Dementia, High Cholesterol, Hypertension Past Surgical History: Unknown Social History Social History: Negative, Lives with family Female( History) History: Not Applicable ROS Dictation BE ADMITTED DUE TO DEMENTIA Physical Exam Physical Exam Dictation VITAL SIGNS: REVIEWED. GENERAL APPEARANCE: ALERT, ORIENTED X3, NO ACUTE DISTRESS, OBESE. HEAD AND FACE: NON-TRAUMATIC. EYES: PERRL, PINK CONJUNCTIVAS, EYELID NO TRAUMA, ANTERIOR CHAMBER CLEAR. EARS: PINNAS INTACT AND NO SIGNS OF TRAUMA OR ERYTHEMA. EAR CANALS CLEAR AND NO DISCHARGE. TMS NO ERYTHEMA. NOSE: NO DISCHARGE, NO BLEEDING. OROPHARYNX: MOUTH NORMAL, TEETH NO CARIES, TONGUE PINK. PHARYNX CLEAR, NO ERYTHEMA. TONSILS NO EXUDATES, NO ABSCESSES NOTED. MUCOUS MEMBRANE MOIST. NECK: SUPPLE, NON-TENDER, NO THYROMEGALY, NO MASSES, NO JVD, NO BRUITS. BREAST: DEFERRED. CHEST: NO TENDERNESS, NO CREPITUS, NO PARADOXICAL MOVEMENT, NO RETRACTIONS. LUNGS: CLEAR, WELL-VENTILATED, SYMMETRIC, NO RALES, NO WHEEZING, NO RHONCHI, NO STRIDOR, GOOD BREATH SOUNDS BILATERALLY. HEART: REGULAR RATE, REGULAR RHYTHM, NO MURMUR, NO GALLOPS. VASCULAR: NO PERIPHERAL EDEMA. ABDOMEN: SOFT, POSITIVE BOWEL SOUNDS, NONDISTENDED, NO GUARDING, NONTENDER, NO REBOUND, NO MASSES NO HEPATOMEGALY, NO SPLENOMEGALY, NO RUIZ'S SIGN, NO HERNIAS. RECTAL: DEFERRED. GENITAL: DEFERRED. NEUROLOGICAL: NORMAL SPEECH, GROSS MOTOR FUNCTION INTACT, GROSS SENSORY FUNCTION INTACT. MUSCULOSKELETAL: NECK NONTENDER, FULL RANGE OF MOTION, BACK NONTENDER, FULL RANGE OF MOTION. EXTREMITIES: NONTENDER, FULL RANGE OF MOTION. SKIN: COLOR PINK, DRY, NO TURGOR, NO RASH, NO LACERATIONS, NO ABRASIONS, NO CONTUSIONS. LYMPHATICS: DEFERRED. Results Laboratory and Microbiology Lab and Micro Result Laboratory Tests Test 11/19/24 07:23 11/19/24 09:18 11/19/24 10:44 Urine Color LIGHT-RED (YELLOW) Urine Appearance SLIGHTLY CLOUDY (CLEAR) Urine pH 5.0 (5.0-8.0) Urine Specific [place] 1.020 (1.001-1.031) Urine Protein TRACE mg/dL (NEGATIVE) H Urine Glucose (UA) NEGATIVE mg/dL (NEGATIVE) Urine Ketones NEGATIVE mg/dL (NEGATIVE) Urine Occult Blood MODERATE (NEGATIVE) Urine Nitrate POSITIVE (NEGATIVE) H Urine Bilirubin LARGE mg/dL (NEGATIVE) H Urine Urobilinogen 0.2 mg/dL (0.2-1.0) Urine Leukocyte Esterase LARGE Nico/uL (NEGATIVE) H Urine RBC 2-5 /HPF (0-1) H Urine WBC 26-50 /HPF (0-1) H Urine Squamous Epithelial Cells Rare /HPF (0-2) Urine Bacteria Few /HPF (None Seen) White Blood Count 9.8 K/uL (4.8-10.8) Red Blood Count 3.65 MIL/uL (4.00-5.50) L Hemoglobin 11.6 g/dL (12.0-16.0) L Hematocrit 35.0 % (36-48) L Mean Corpuscular Volume 95.9 fL (79-99) Mean Corpuscular Hemoglobin 31.8 pg (27.0-33.0) Mean Corpuscular Hemoglobin Concent 33.1 g/dL (32.0-36.0) Red Cell Distribution Width 13.3 % (11.0-15.5) Platelet Count 207 K/uL (130-400) Mean Platelet Volume 11.9 fL (7.5-10.5) H Immature Granulocyte % (Auto) 0.4 % (0-1) Neutrophils (%) (Auto) 70.5 % (40.0-77.0) Lymphocytes (%) (Auto) 11.3 % (21.0-51.0) L Monocytes (%) (Auto) 16.3 % (3.0-13.0) H Eosinophils (%) (Auto) 1.2 % (0.0-8.0) Basophils (%) (Auto) 0.3 % (0.0-5.0) Neutrophils # (Auto) 6.9 K/uL (1.8-7.7) Lymphocytes # (Auto) 1.1 K/uL (1.0-4.8) Monocytes # (Auto) 1.6 K/uL (0.1-1.0) H Eosinophils # (Auto) 0.12 K/uL (0.00-0.70) Basophils # (Auto) 0.03 K/uL (0.00-0.20) Absolute Immature Granulocyte (auto 0.04 K/uL (0-1) Nucleated Red Blood Cells 0.0 % (0.0-0.19) White Cell Morphology Comment See comments Prothrombin Time 11.0 SEC (9.6-11.6) Prothromb Time International Ratio 1.04 (0.85-1.15) Activated Partial Thromboplast Time 29.3 SEC (26.3-35.5) Sodium Level 143 mmol/L (136-145) Potassium Level 3.2 mmol/L (3.5-5.1) L Chloride Level 107 mmol/L (101-111) Carbon Dioxide Level 30 mmol/L (21-32) Blood Urea Nitrogen 38 mg/dL (7-18) H Creatinine 1.7 mg/dL (0.5-1.0) H Glomerular Filtration Rate Calc 29 mL/min (>90) Random Glucose 124 mg/dL (70-105) H Total Calcium 9.3 mg/dL (8.5-10.1) Magnesium Level 2.30 mg/dL (1.80-2.40) Total Creatine Kinase 20 U/L (21-232) #L Troponin I High Sensitivity 288 ng/L (4-50) *H 276 ng/L (4-50) *H B-Type Natriuretic Peptide 3280 pg/mL (0-100) H Labs Reviewed?: Yes EKG/XRAY/US/CT/MRI EKG Comment 11/19/2024 TIME 9:08 A.M. VENTRICULAR RATE 61 SINUS RHYTHM [place] [address] WAVE ELEVATION OR DEPRESSION X-RAY Comment [place] [address] [place] [address] IMAGING REPORT Signed PATIENT: LARISSA MARIN MR#: [id number] : 1935 SEX: F AGE: 89 LOCATION: [facility] ORDER 2 STATUS: [facility] REPORT#: [id number] SERVICE 1 REASON: CP ORDERING PHYSICIAN: CHAN SOLANO MD PROCEDURE: CXR1VW - CHEST 1VW CHEST 1VW HISTORY: Chest pain COMPARISON: 07/16/2024 FINDINGS: A frontal projection of the chest was obtained. No acute pulmonary infiltrates is seen. The heart is borderline enlarged. Aortic calcifications are seen. Degenerative changes are seen IMPRESSION: 1. No acute pulmonary infiltrate is seen. DICTATED BY: FRANCES PINEDA MD DATE: 11/19/24941 ELECTRONICALLY SIGNED BY: FRANCES PINEDA MD DATE: 11/19/24944 [facility] MDM: DIFFERENTIAL DIAGNOSIS: HYPOTENSIVE EPISODE, NSTEMI, ACS HISTORY OF DEMENTIA, ACUTE ON CHRONIC CHF EXACERBATION RATIONALE: TESTS CONSIDERED AND ORDERED SECONDARY TO SHARED DECISION MAKING INCLUDE: LABS, ECG AND RADIOLOGY PREVIOUS OUTSIDE RECORDS REVIEWED: OLD ER VISITS. RISK OF COMPLICATION AND/OR MORBIDITY OR MORTALITY OF PATIENT MANAGEMENT: NONE MEDICATIONS-PER MEDICATION RECONCILIATION NEED FOR HOSPITALIZATION: PATIENT DOES MEET CRITERIA FOR HOSPITALIZATION. NEED FOR EMERGENCY MAJOR/MINOR SURGERY: NO THERE ARE NO SOCIAL CONCERNS WITH THIS PATIENT. PRESCRIPTION DRUG MANAGEMENT PRESCRIPTIONS WILL INCLUDE SYMPTOMATIC CARE PATIENT'S PRIOR EXTERNAL MEDICAL RECORDS FROM OTHER ER VISITS WERE REVIEWED BY ME INDICATED. PRIOR TESTING AND RESULTS FROM PREVIOUS VISITS WERE REVIEWED. PRIOR TESTS WERE TAKEN INTO ACCOUNT WITH MEDICAL DECISION MAKING AND RESOURCE UTILIZATION, INDEPENDENT HISTORIAN/HISTORIANS WERE USED TO OBTAIN COMPLETE MEDICAL HISTORY. I INDEPENDENTLY INTERPRETED THE TEST THAT WERE PERFORMED, RESULTS WERE REVIEWED BY ME AND CONSIDERED FINDINGS ON RADIOLOGY IF ORDERED. MEDICAL MANAGEMENT AND EXAMINATION INTERPRETATION DISCUSSIONS WERE HAD BY ME WITH OTHER QUALIFIED HEALTHCARE PROFESSIONALS INDICATED FOR THE PATIENT'S CARE. PATIENT IS A AN 89-YEAR-OLD FEMALE COMING IN TO BE EVALUATED FOR A HYPOTENSIVE EPISODE. CARDIAC WORKUP POSITIVE FOR ELEVATED TROPONINS PATIENT WAS STARTED ON BE ADMITTED UNDER THE CARE OF [facility] FOR ONGOING MANAGEMENT AND EVALUATION. ED Course Orders Procedure Category Date Status Time Cbc With Differential LAB 11/19/24 Complete 09:02 Prothrombin Time With LAB 11/19/24 Complete INR 09:02 B-Type Natriuretic LAB 11/19/24 Complete Peptide 09:02 Chest 1vw RAD 11/19/24 Resulted 09:02 12 Lead Ekg Tracing- EKG 11/19/24 Logged Technical 09:02 Lactated Ringers PHA 11/19/24 Complete 1000ml (Lactated 09:30 Magnesium LAB 11/19/24 Complete 09:02 Creatine Kinase, Total LAB 11/19/24 Complete 09:02 Troponin I High LAB 11/19/24 Complete Sensitivity 09:02 Urinalysis Profile LAB 11/19/24 Complete 09:02 Partial LAB 11/19/24 Complete Thromboplastin Time 09:02 Basic Metabolic Panel LAB 11/19/24 Complete 09:02 Troponin I High LAB 11/19/24 Complete Sensitivity 09:51 Aspirin 325mg Tab PHA 11/19/24 Complete (Aspirin 325mg Tab) 10:30 Culture Urine JASON 11/19/24 In Process 10:53 Aztreonam (Azactam) PHA 11/19/24 In Process 12:30 Furosemide 40mg Vial PHA 11/19/24 In Process (Lasix 40mg Vial) 12:00 Current Medications Medications (Trade) Dose Ordered Sig/Sonali Route PRN Reason Start Time Stop Time Status Last Admin Dose Admin Aspirin (Aspirin 325mg Tab) 325 mg ONCE ONCE PO 11/19/24 10:30 11/19/24 10:31 DC 11/19/24 10:27 Aztreonam (Azactam) 1 gm Q24H IVPB 11/19/24 12:30 11/29/24 12:29 Furosemide (LASix 40MG VIAL) 40 mg ONCE ONCE IV 11/19/24 12:00 11/19/24 12:01 Lactated Ringer's 1,000 ml @ 0 mls/hr ONCE ONCE IV 11/19/24 09:30 11/19/24 09:32 DC 11/19/24 10:13 Vital Signs Date Time Temp Pulse Resp B/P (MAP) Pulse Ox O2 Delivery O2 Flow Rate FiO2 11/19/24 08:55 97.5 63 14 123/68 99 Nasal Cannula 2.0 Critical Care Note Comments CRITICAL CARE PROCEDURE NOTE AUTHORIZED AND PERFORMED BY: TOTAL CRITICAL CARE TIME: APPROXIMATELY 36 MINUTES DUE TO A HIGH PROBABILITY OF CLINICALLY SIGNIFICANT, LIFE THREATENING DETERIORATION, THE PATIENT REQUIRED MY HIGHEST LEVEL OF PREPAREDNESS TO INTERVENE EMERGENTLY AND I PERSONALLY SPENT THIS CRITICAL CARE TIME DIRECTLY AND PERSONALLY MANAGING THE PATIENT. THIS CRITICAL CARE TIME INCLUDED OBTAINING A HISTORY; EXAMINING THE PATIENT; PULSE OXIMETRY; ORDERING AND REVIEW OF STUDIES; ARRANGING URGENT TREATMENT WITH DEVELOPMENT OF A MANAGEMENT PLAN; EVALUATION OF PATIENT'S RESPONSE TO TREATMENT; FREQUENT REASSESSMENT; AND, DISCUSSIONS WITH OTHER PROVIDERS. THIS CRITICAL CARE TIME WAS PERFORMED TO ASSESS AND MANAGE THE HIGH PROBABILITY OF IMMINENT, LIFE-THREATENING DETERIORATION THAT COULD RESULT IN MULTI-ORGAN FAILURE. IT WAS EXCLUSIVE OF SEPARATELY BILLABLE PROCEDURES AND TREATING OTHER PATIENTS AND TEACHING TIME. PLEASE SEE MDM SECTION AND THE REST OF THE NOTE FOR FURTHER INFORMATION ON PATIENT ASSESSMENT AND TREATMENT. DX & DISP Disposition: Inpatient Decision to Admit Time: 11:47 Departure Impression: Primary Impression: Dehydration Additional Impressions: NSTEMI (non-ST elevated myocardial infarction), Dementia, Acute exacerbation of chronic heart failure Condition: Stable Referrals: PRANAV XIE MD (PCP) CHAN SOLANO MD November 19, 2024 09:55
[2024-11-19 10:02] LABS: B-TYPE NATRIURETIC PEPTIDE 3280 pg/mL (0-100)
[2024-11-19] MEDS: LACTATED RINGERS 1000ML 1,000 ML IV ONE (10:13)
[2024-11-19] MEDS: ASPIRIN 325MG TAB PO ONE (10:27)
[2024-11-19 10:52] LABS: APPEARANCE,URINE SLIGHTLY CLOUDY (CLEAR); COLOR,URINE LIGHT-RED (YELLOW); GLUCOSE, URINE (UA) NEGATIVE (NEGATIVE); OCCULT BLOOD,URINE MODERATE (NEGATIVE); PROTEIN,URINE TRACE mg/dL (NEGATIVE)
[2024-11-19 10:53] LABS: ADD UA MICROSCOPIC YES; BILIRUBIN,URINE LARGE mg/dL (NEGATIVE); KETONES,URINE NEGATIVE (NEGATIVE); LEUKOCYTE ESTERASE ,URINE LARGE Leu/uL (NEGATIVE); NITRATE,URINE POSITIVE (NEGATIVE); UROBILINOGEN,URINE 0.2 mg/dL (0.2-1.0)
[2024-11-19 11:37] LABS: SQUAMOUS EPITHELIAL CELL,UR Rare /HPF (0-2)
[2024-11-19 11:40] LABS: BACTERIA,URINE Few /HPF (None Seen)
[2024-11-19 11:44] LABS: WBC,URINE 26-50 /HPF (0-1)
[2024-11-19] MEDS: AZTREONAM 1 GM VIAL IVPB SCH (11:58)
[2024-11-19] MEDS: furoSEMIDE 40MG VIAL IV ONE (11:58)
[2024-11-19] MEDS ORDERED: guaiFENesin-DM 200/20MG 10ML PO PRN (12:00)
[2024-11-19] MEDS ORDERED: guaiFENesin SUGAR-FREE 100 MG/5 ML UDCUP PO PRN (12:00)
[2024-11-19] MEDS ORDERED: DiphenhydrAMINE HCL 50 MG/ML VIAL IV PRN (12:00)
[2024-11-19] MEDS ORDERED: NITROGLYCERIN 0.4 MG SL TAB SL PRN (12:00)
[2024-11-19] MEDS ORDERED: ARTIFICAL TEARS SOL 15 ML OP PRN (12:00)
[2024-11-19] MEDS ORDERED: doCUSate SODIUM 100 MG CAP PO PRN (12:00)
[2024-11-19] MEDS ORDERED: polyETHYLene GLYCol 3350 17 GM POWD.PACK PO PRN (12:00)
[2024-11-19] MEDS ORDERED: LACTULOSE 20 GM/30 ML UDCUP PO PRN (12:00)
[2024-11-19] MEDS ORDERED: acetaMINOPHEN 325 MG TAB PO PRN (12:00)
[2024-11-19] MEDS ORDERED: LIDOCAINE HCL 2% VISCOUS 30 ML, MAG/ALUM/SIMETH 30ML 30 ML, DICYCLOMINE HCL 20 MG PO PRN (12:00)
[2024-11-19] MEDS ORDERED: DiphenhydrAMINE HCL 25 MG CAPSULE PO PRN (12:00)
[2024-11-19] MEDS ORDERED: ondanSETRON 4MG INJ IV PRN (12:00)
[2024-11-19] MEDS ORDERED: BENZOCAINE/MENTH/CETYLPYRD CL 1 EACH LOZENGE MM PRN (12:00)
[2024-11-19] MEDS ORDERED: MAG/ALUM/SIMETH 30 ML UDCUP PO PRN ×2 (12:00→12:30)
[2024-11-19 12:29] LABS: ABG BASE EXCESS 2.8 mmol/L (-2.0-3.0); ABG HCO3 25.6 mmol/L (21.0-28.0); ABG OXYGEN SATURATION 94.4 % (94.0-98.0); ABG PCO2 34 mmHg (32-45); ABG PH 7.493 (7.350-7.450); DEVICE COMMENT RLJUAN; VENT MODE, BG RA (ROOM AIR)
[2024-11-19] MEDS ORDERED: DICYCLOMINE HCL 10 MG/5 ML ML PO PRN (12:30)
[2024-11-19] MEDS ORDERED: LIDOCAINE HCL 2% VISCOUS 15 ML UDCUP PO PRN (12:30)
[2024-11-19 12:56] LABS: AMMONIA < 10 umol/L (11-32); THYROID STIMULATING HORMONE 1.24 uIU/mL (0.36-3.74)
[2024-11-19] MEDS: ALBUTEROL 0.083% 2.5 MG/3 ML INH IH SCH (13:50)
--- NOTE | 2024-11-19 14:08 | HMCSR ---
APPROVED REPORT EXAM: Two-dimensional and M-mode echocardiogram with Doppler and color Doppler. INDICATION ICD: Shortness of breath 2D Dimensions RVDd3.6 cmLVEF(%)52.5 (>50%)LVED Vol(simp.)44.0 mL IVSd1.5 (0.7-1.1cm)FS(%)26 %LVES Vol(simp.)20.0 mL LVDd2.8 (3.8-5.6cm)LA (2D)3.9 (1.6-4.0cm)LVEF(%, simp.)54 % PWd1.4 (0.7-1.1cm)Ao Root(2D)2.5 (2.0-3.7cm)LA ESV INDEX (BP)62.40 mL/m2 LVDs2.1 (2.5-4.0cm)LVOT diam1.7 (1.8-2.4cm) IVC diam0.9 cm Deformation Strain Apical 4-10.8 % Apical 2-9.5 % Apical 3-7.2 % Global Strain-9.2 % M-Mode Dimensions EPSS0.8 cm LA (MM)4.3 (1.6-4.0cm) Ao Root(MM)1.7 (2.0-3.7cm) Aortic Valve AoV Vmax4.7 m/Julee Peak GR88.3 mmHgLVOT Vmax1.0 m/s AoV VTI1.0 mAo Mean GR64.6 mmHgLVOT VTI0.24 m DASHA (VMAX)0.57 cm2AVA (VTI) 0.4 cm2 Mitral Valve MV E Bymq497.4 cm/sDECEL Vhno792 msMV Peak GR17 mmHg MV A Ubtb181.9 cm/sP 1/2 T163 msMV Mean GR6 mmHg E/A ratio0.7MVA (PHT)1.3 cm2MVA (VTI)0.90 cm2 TDI E/E' Tnyitb43.9E/E' Sellqsl53.8 Medial E' Peak V2.77 cm/sLateral E' Peak V2.50 cm/s Pulmonary Valve PV Vmax1.7 m/sPV VTI0.30 mPV Mean GR5.7 mmHg PV Peak GR11.2 mmHg Tricuspid Valve TR Vmax1.5 m/sRVSP9.1 mmHg TR Peak GR9.1 mmHg Left Ventricle Left ventricular cavity size is normal. No regional wall motion abnormalities noted. Moderate concent kalani left ventricular hypertrophy. LVEF is 50-55%. Stage II diastolic dysfunction. Right Ventricle The right ventricle is normal size. Right ventricular systolic function is mildly reduced. Atria The left atrium is severely dilated. The right atrium is small. Aortic Valve The aortic valve is calcified and displays decreased opening. No aortic regurgitation is present. The re is severe valvular aortic stenosis. Highest mean aortic valve gradient is 64.66mmHg. Highest pk ao rtic valve gradient is 93.08mmHg. Calculated DASHA by the continuity equation is 0.5cm2. Mitral Valve The mitral valve is calcified and displays decreased opening. Mitral regurgitation is mild. Mild to m oderate mitral stenosis. Tricuspid Valve The tricuspid valve is normal in structure and function. There is no tricuspid valve regurgitation no frandy. Pulmonic Valve The pulmonary valve is normal in structure. There is trace pulmonic valvular regurgitation. Great Vessels The aortic root is normal in size. The IVC is normal in size and collapses >50% with inspiration. Pericardium No pericardial effusion. Conclusion LVEF is 50-55%. Moderate concentric left ventricular hypertrophy. Stage II diastolic dysfunction. The left atrium is severely dilated. There is severe valvular aortic stenosis. Highest mean aortic valve gradient is 64.66mmHg. Highest pk aortic valve gradient is 93.08mmHg. Calculated DASHA by the continuity equation is 0.5cm2. Mitral regurgitation is mild. The aortic root is normal in size.
[2024-11-19] MEDS: INSULIN LISpro 100 UNIT/ML 3ML SQ SCH (16:30)
--- NOTE | 2024-11-19 16:30 | HP ---
[facility] HISTORY & PHYSICAL Date Patient Seen: November 19, 2024 Time of Visit: 17:15 Supervising Physician: [Dr. Huynh] Primary Care Physician: [Dr. Juanita Javed] Outpatient Specialists: [ ] Inpatient Consults: [] PROBLEM LIST: Acute kidney injury, on CKD, POA Acute complicated cystitis NSTEMI, likely type 2, POA Acute dehydration Severe Aortic stenosis, declined intervention previously Chronic diastolic heart failure, EF 55-60% on previous echo Hypokalemia Hx of fall Essential hypertension General anxiety disorder Depression GERD Dementia HPI: [89-year-old female with a history of dementia, severe aortic stenosis and chronic kidney disease who presented to the ED from a long-term for evaluation of low blood pressure. Per ED report, EMS reported improved blood pressure readings while on her way to the hospital. Her labs on admission reveal JAYANT with a creatinine of 1.7, hypokalemia of 3.2, elevated troponin in the 200-300 range and elevated BNP of 3280. Her UA showed large amount of leukocyte esterase. Patient was given a dose of aztreonam in multiple allergy. Her CXR shows no acute pulmonary infiltrates. Patient has a history of severe aortic stenosis, has declined treatment in the past per previous hospital note. This is likely the cause of her elevated troponin which has plateaued in the 2- 300 range. It may also be the cause of her elevated BNP. Will touch base with family regarding resuscitation status. Patient has a history of dementia and is a poor historian. She was clinically euvolemic.] PAST MEDICAL HX: see above PAST SURGICAL HX: noncontributory SOCIAL HISTORY: No tobacco, ETOH, or illicit drug use Coded Allergies: Penicillins (Unverified Allergy, Unknown, 10/17/21) Sulfa (Sulfonamide Antibiotics) (Unverified Allergy, Unknown, 10/17/21) bisacodyl (Unverified Allergy, Unknown, 10/17/21) ciprofloxacin (Unverified Allergy, Unknown, 10/17/21) doxycycline (Unverified Allergy, Unknown, 10/17/21) egg (Unverified Allergy, Unknown, 10/17/21) influenza virus vacc trivalent, split (Unverified Allergy, Unknown, 10/17/21) levofloxacin (Unverified Allergy, Unknown, 10/17/21) REVIEW OF SYSTEMS: 12 point ROS reviewed with patient. Pertinent positives mentioned above. Otherwise negative. PHYSICAL EXAM: GENERAL: alert, weak, awake oriented x 3 HEENT: EOMI, Sclera non icteric, moist mucosa NECK: Supple, no JVD, trachea midline LUNGS: Clear breath sounds bilaterally. No wheezes HEART: Regular rate and rhythm. Normal S1 and S2, without murmurs ABD: Abdomen soft, nontender. Bowel sounds present EXT: No clubbing cyanosis or edema NEURO: Alert and oriented to person, follows commands Vital Signs (last 8hr) Date Time Temp Pulse Resp B/P (MAP) Pulse Ox O2 Delivery O2 Flow Rate FiO2 11/19/24 13:14 97.3 77 18 146/71 96 Room Air* 0 21 11/19/24 12:41 18 N/A Room Air 21 11/19/24 12:40 77 LABS: Hematology Labs: Test 11/19/24 09:18 Range/Units White Blood Count 9.8 4.8-10.8 K/uL Red Blood Count 3.65 L 4.00-5.50 MIL/uL Hemoglobin 11.6 L 12.0-16.0 g/dL Hematocrit 35.0 L 36-48 % Mean Corpuscular Volume 95.9 79-99 fL Mean Corpuscular Hemoglobin 31.8 27.0-33.0 pg Mean Corpuscular Hemoglobin Concent 33.1 32.0-36.0 g/dL Red Cell Distribution Width 13.3 11.0-15.5 % Platelet Count 207 130-400 K/uL Mean Platelet Volume 11.9 H 7.5-10.5 fL Immature Granulocyte % (Auto) 0.4 0-1 % Neutrophils (%) (Auto) 70.5 40.0-77.0 % Lymphocytes (%) (Auto) 11.3 L 21.0-51.0 % Monocytes (%) (Auto) 16.3 H 3.0-13.0 % Eosinophils (%) (Auto) 1.2 0.0-8.0 % Basophils (%) (Auto) 0.3 0.0-5.0 % Neutrophils # (Auto) 6.9 1.8-7.7 K/uL Lymphocytes # (Auto) 1.1 1.0-4.8 K/uL Monocytes # (Auto) 1.6 H 0.1-1.0 K/uL Eosinophils # (Auto) 0.12 0.00-0.70 K/uL Basophils # (Auto) 0.03 0.00-0.20 K/uL Absolute Immature Granulocyte (auto 0.04 0-1 K/uL Nucleated Red Blood Cells 0.0 0.0-0.19 % White Cell Morphology Comment See comments Chemistry Labs: Test 11/19/24 15:38 11/19/24 12:07 11/19/24 09:18 Range/Units Lactic Acid Level 2.5 0.8-2.5 mmol/L Ammonia < 10 L 11-32 umol/L Troponin I High Sensitivity 294 *H 4-50 ng/L Procalcitonin 2.80 H 0.05-0.5 ng/mL Thyroid Stimulating Hormone (TSH) 1.24 # 0.36-3.74 uIU/mL Sodium Level 143 136-145 mmol/L Potassium Level 3.2 L 3.5-5.1 mmol/L Chloride Level 107 101-111 mmol/L Carbon Dioxide Level 30 21-32 mmol/L Blood Urea Nitrogen 38 H 7-18 mg/dL Creatinine 1.7 H 0.5-1.0 mg/dL Glomerular Filtration Rate Calc 29 >90 mL/min Random Glucose 124 H 70-105 mg/dL Total Calcium 9.3 8.5-10.1 mg/dL Magnesium Level 2.30 1.80-2.40 mg/dL Total Creatine Kinase 20 #L 21-232 U/L B-Type Natriuretic Peptide 3280 H 0-100 pg/mL Coagulation Labs: Test 11/19/24 09:18 Range/Units Prothrombin Time 11.0 9.6-11.6 SEC Prothromb Time International Ratio 1.04 0.85-1.15 Activated Partial Thromboplast Time 29.3 26.3-35.5 SEC DIAGNOSTICS / RADIOLOGY RESULTS: [Reviewed] PLAN Follow urine culture results Continue aztreonam Follow echocardiogram results Order TSH, procalcitonin, lactic acid Update home meds for reconciliation Will keep patient euvolemic NEURO: Minimize central acting medications as possible. Maintain fall precautions, adequate lighting during the day PULMONARY: Supplemental 02 as needed. Maintain aspiration precautions at all times CARDIOVASCULAR: Follow hemodynamics. Vital signs per facility protocol GI & NUTRITION: Continue with nutritional support. Continue stool softeners and laxatives as needed. KIDNEYS & ELECTROLYTES: Strict monitoring of intake, output and overall fluid balance. Avoid nephrotoxic medications to the extent possible. Medications to be dosed according to renal function. Monitor electrolytes and replace as needed ENDOCRINE: Maintain blood glucose between 100-180 at all times. Hypoglycemia protocol in place INFECTIOUS DISEASE: Trend temperature, WBC and procalcitonin level Follow cultures, deescalate antibiotics as soon as possible. Panculture if new onset fever ONCOLOGY/HEMATOLOGY/COAGULATION: Monitor for s/s of bleeding Monitor hemoglobin, coagulation studies as needed SKIN: Pressure ulcer prevention per facility protocol Specialty mattress ORTHO/REHAB: Continue PT/OT Prophylaxis: Continue GI and DVT prophylaxis Code Status: Full Resuscitation Disposition: TBD Other: Total patient care time exceeds 35 minutes excluding all procedures. ROSLYN RITCHIE November 19, 2024 16:30
[2024-11-19] MEDS ORDERED: NA P133E22 PR (20:50)
[2024-11-19] MEDS ORDERED: FURO40TA5 PO (20:50)
[2024-11-19] MEDS ORDERED: CARB-283 OP (20:50)
[2024-11-19] MEDS ORDERED: MEGE400O39 PO (20:50)
[2024-11-19] MEDS ORDERED: ISOS30TA11 PO (20:50)
[2024-11-19] MEDS ORDERED: FAMO20TA8 PO (20:50)
[2024-11-19] MEDS ORDERED: LIDO-15 TP (20:50)
[2024-11-19] MEDS ORDERED: ATOR40TA71 PO (20:50)
[2024-11-19] MEDS ORDERED: METO25TA6 PO (20:50)
[2024-11-19] MEDS ORDERED: PANT20TA18 PO (20:50)
[2024-11-19] MEDS ORDERED: BUSP5TAB3 PO (20:50)
[2024-11-19] MEDS ORDERED: MEMA10TA21 PO (20:50)
[2024-11-19] MEDS ORDERED: FERR-72 PO (20:50)
[2024-11-19] MEDS ORDERED: POTA10CA95 PO (20:50)
[2024-11-19] MEDS ORDERED: DONE-51 PO (20:50)
[2024-11-19] MEDS ORDERED: ASPI-1197 PO (20:50)
[2024-11-19] MEDS ORDERED: HYDR-3421 PO (20:50)
[2024-11-19] MEDS ORDERED: DOCU100C33 PO (20:50)
[2024-11-19] MEDS ORDERED: GABA-529 PO (20:50)
[2024-11-19] MEDS ORDERED: SIME80TA12 PO (20:50)
[2024-11-19] MEDS ORDERED: LACT10SO85 PO (20:50)
[2024-11-19] MEDS ORDERED: NITR0.4T50 SL (20:50)
[2024-11-19] MEDS ORDERED: FAMOTIDINE 20MG TAB PO SCH (21:00)
[2024-11-19] MEDS: busPIRone HCL 5 MG TABLET PO SCH (21:24)
[2024-11-19] MEDS: metoPROLOL tartRATE 25 MG TAB PO SCH (21:24)
[2024-11-19] MEDS: acetaMINOPHEN 325 MG TAB PO PRN (21:25)
[2024-11-20] VITALS (10 sets, daily range): BP systolic 126–162; BP diastolic 46–79; PULSE 58–69; RESP 18–19; TEMP 98.2–100.6; O2SAT 95–96
--- NOTE | 2024-11-20 07:46 | NUR ---
HOME MEDICATIONS HOME MEDICATIONS HAVE BEEN ENTERED, PENDING RECONCILIATION, MD NOTIFIED.
--- NOTE | 2024-11-20 08:04 | EKG ---
[facility] Test Date: 2024-11-19 Test Time: 09:08:58 Pat Name: LARISSA MARIN Department: [facility] Room: 322 1 Gender: F Denture Packer: [id number] : 1935 Requested By: CHAN SOLANO Order Number: [id number] Reading MD: Montana Molina Measurements Intervals [place] Rate: 61 P: 30 MD: 146 QRS: 7 QRSD: 86 T: 0 QT: 492 QTc: 494 Interpretive Statements Sinus rhythm Probable LVH with secondary repol abnrm BORDERLINE ST DEPRESSION, ANTEROLATERAL LEADS Electronically Signed On 11-20-2024 12:48:31 CDT by Montana Molina Please click the below link to view image of tracing.
[2024-11-20] MEDS: MEMANtine HCL 5 MG TABLET PO SCH (09:03)
[2024-11-20] MEDS: FAMOTIDINE 20MG VIAL IV SCH (09:03)
[2024-11-20 12:03] LABS: CREATININE 1.3 mg/dL (0.5-1.0)
[2024-11-20] MEDS ORDERED: PoTASSium chloRIDE 20MEQ/100ML 100 ML IV PRN (13:00)
[2024-11-20] MEDS ORDERED: PoTASSium chloRIDE 20MEQ ER 20 MEQ ERTAB PO PRN (13:00)
[2024-11-20] MEDS ORDERED: MAGNESIUM 2GM PREMIX 50ML 50 ML IV PRN (13:00)
[2024-11-20] MEDS: PoTASSium chl 10% ELIXIR 20MEQ 20 MEQ/15 ML UDCUP PO PRN (13:09)
[2024-11-20] MEDS ORDERED: [UNRECOGNIZED DRUG - CODE] IJ (14:40)
--- NOTE | 2024-11-20 14:44 | DS ---
[facility] DISCHARGE SUMMARY Date Patient Seen: November 20, 2024 Time of Visit: 15:44 Supervising Physician: [Dr. Huynh] Primary Care Physician: [Dr. Juanita Javed] Outpatient Specialists: [ ] Inpatient Consults: [] PROBLEM LIST: Acute kidney injury, on CKD, POA Acute complicated cystitis NSTEMI, likely type 2, POA Acute dehydration Severe Aortic stenosis, declined intervention previously Chronic diastolic heart failure, EF 55-60% on previous echo Hypokalemia Hx of fall Essential hypertension General anxiety disorder Depression GERD Dementia HOSPITAL COURSE: HPI (per admitting provider) 89-year-old female with a history of dementia, severe aortic stenosis and chronic kidney disease who presented [facility] the ED from a [facility] for evaluation of low blood pressure. Per ED report, EMS reported improved blood pressure readings while on her way to the hospital. Her labs on admission reveal JAYANT with a creatinine of 1.7, hypokalemia of 3.2, elevated troponin in the 200-300 range and elevated BNP of 3280. Her UA showed large amount of leukocyte esterase. Patient was given a dose of aztreonam in multiple allergy. Her CXR shows no acute pulmonary infiltrates. Patient has a history of severe aortic stenosis, has declined treatment in the past per previous hospital note. This is likely the cause of her elevated troponin which has plateaued in the 2- 300 range. It may also be the cause of her elevated BNP. Will touch base with family regarding resuscitation status. Patient has a history of dementia and is a poor historian. She was clinically euvolemic. 11/20 Patient is evaluated at bedside, no family present. She currently feels well without any active complaints. Continues on aztreonam for urinary tract infection. Labs and vitals are unremarkable. We will plan to discharge back to shelter facility to continue aztreonam for 7 days for UTI. CHRONIC PROBLEMS: continue previous management per PCP unless otherwise indicated DISCHARGE MEDICATIONS: As listed below Pt hemodynamically stable and afebrile at time of discharge. PCP notified of patients admission, hospital course and discharge. New Medications: Aztreonam (Aztreonam) 1 Gram Vial 1 GM IJ DAILY for 7 Days, #7 VIAL Continued Medications: Aspirin (Aspirin) 81 Mg Tab.chew 1 TAB PO DAILY for 30 Days, #30 TAB 0 Refills Atorvastatin Calcium (Atorvastatin Calcium) 40 Mg Tablet 1 TAB PO HS for 30 Days, #30 TAB 0 Refills Buspirone HCl (Buspirone HCl) 5 Mg Tablet 1 TAB PO TID for 30 Days, #60 TAB 0 Refills Carboxymethylcellulose Sodium (Artificial Tears) 1 % Drops 1 DROP OP BID for 30 Days, #15 ML 0 Refills Docusate Sodium (Docusate Sodium) 100 Mg Capsule 100 MG PO HS, CAP Famotidine (Famotidine) 20 Mg Tablet 1 TAB PO BID for 30 Days, #60 TAB 0 Refills Ferrous Sulfate (Ferrous Sulfate) 325 Mg (65 Mg Iron) Tablet 1 TAB PO DAILY for 30 Days, #30 TAB 0 Refills Furosemide (Furosemide) 40 Mg Tablet 40 MG PO BID, TAB Gabapentin (Gabapentin) 100 Mg Capsule 100 MG PO HS, CAP Hydroxyzine HCl (Hydroxyzine HCl) 25 Mg Tablet 1 TAB PO TID for anxiety for 30 Days, #90 TAB 0 Refills Isosorbide Dinitrate (Isosorbide Dinitrate) 30 Mg Tablet 1 TAB PO DAILY for chest pain for 30 Days, #30 TAB 0 Refills Lactulose (Lactulose) 10 Gram/15 Ml Solution 30 ML PO BID for constipation, #500 ML 0 Refills Lidocaine HCl (Lidocaine HCl) 4 % Adh..patch 1 PATCH TP DAILY for 10 Days, #10 PATCH 0 Refills Megestrol Acetate (Megestrol Acetate Susp) 400 Mg/10 Ml (40 Mg/Ml) Susp 10 ML PO DAILY for 30 Days, #300 ML 0 Refills Memantine HCl (Memantine HCl) 10 Mg Tablet 1 TAB PO BID for 30 Days, #60 TAB 0 Refills Metoprolol Tartrate (Metoprolol Tartrate) 25 Mg Tablet 1 TAB PO BID for 30 Days, #60 TAB 0 Refills Na Phos,M-B/Na Phos,Di-Ba (Fleet Enema) 19 Gram-7 Gram/118 Ml Enema 1 EACH OK Q24H PRN for CONSTIPATION for 1 Day, #1 EACH 0 Refills Nitroglycerin (Nitroglycerin) 0.4 Mg Tab.subl 1 TAB SL AD for chest pain, #25 TAB 0 Refills 1st sign of attack; may repeat every 5 mins; if pain persists after 3 in 15 min, medical attention is recommended Pantoprazole Sodium (Pantoprazole Sodium) 20 Mg Tablet.dr 1 TAB PO DAILY for 30 Days, #30 TAB 0 Refills Potassium Chloride (Potassium Chloride) 10 Meq Capsule.er 1 CAP PO BID for 30 Days, #30 CAP 0 Refills Simethicone (Simethicone) 80 Mg Tab.chew 80 MG PO Q6HPRN PRN for GI GAS, TAB.CHEW Discontinued Medications: Donepezil HCl (Donepezil HCl) 5 Mg Tab.rapdis 5 MG PO HS, TAB PHYSICAL EXAM: GENERAL: alert, weak, awake oriented x 3 HEENT: EOMI, Sclera non icteric, moist mucosa NECK: Supple, no JVD, trachea midline LUNGS: Clear breath sounds bilaterally. No wheezes HEART: Regular rate and rhythm. Normal S1 and S2, without murmurs ABD: Abdomen soft, nontender. Bowel sounds present EXT: No clubbing cyanosis or edema NEURO: Alert and oriented to person, follows commands FOLLOW-UP: Follow-up with PCP in 2-3 days post discharge for repeat UA. Complete aztreonam x7 days at SNF. RECOMMENDATIONS: See Discharge Instructions This case was seen and discussed with my supervising physician. More than 30 minutes spent on discharge process, including evaluation of the patient, discu ssion with nursing staff, medication reconciliation and follow-up appointments ROSLYN RITCHIE November 20, 2024 14:44
--- NOTE | 2024-11-20 17:07 | NUR ---
DISCHARGE DISCHARGE ORDERS FOR PATIENT TO BE DISCHARGED AND TRANSFERRED BACK TO [facility] OBTAINED. PER MARLEN, PATIENT HAS BEEN ACCEPTED. BANDS REMOVED PRIOR TO DISCHARGE. CONTACTED FAMILY, SPOKE WITH KEON MARIN AND NOTIFIED OF TRANSFER. VOICED UNDERSTANDING. REPORT CALLED IN TO [facility]. SPOKE WITH KHANG BRADY AND PROVIDED REPORT ON PATIENT'S CONDITION, MD'S ORDERS AND STATUS. VOICED UNDERSTANDING. PER CAITLYN, LEAVE IV IN PLACE FOR CONTINUED IV ANTIBIOTICS. IV IN PLACE, PATENT AND SECURED. PENDING ARRIVAL FOR FACILITY TRANSPORTATION.
--- NOTE | 2024-11-20 17:48 | NUR ---
DISCHARGE PATIENT LEFT VIA WHEELCHAIR, ACCOMPANIED BY FACILITY DEPOT AGENT. NO S/S OF DISTRESS NOTED.
[2024-11-20] MEDS ORDERED: doNEPEZil HCL 5 MG TAB PO SCH (21:00)
== END 2024-11-20 17:45 ==
LOC: EDH 08:51 → EDHIP 08:52 → 3DH 14:15
PROVIDERS: ADMIT Internal Medicine Critical Care Medicine; ATTEND Internal Medicine Critical Care Medicine
DX: N17.9 Acute kidney failure, unspecified (principal); I13.0 Hypertensive heart and chronic kidney disease with heart failure and stage 1 through stage 4 chronic kidney disease, or unspecified chronic kidney disease; N18.9 Chronic kidney disease, unspecified; I50.32 Chronic diastolic (congestive) heart failure; N30.00 Acute cystitis without hematuria; E86.0 Dehydration; I35.0 Nonrheumatic aortic (valve) stenosis; E87.6 Hypokalemia; I95.9 Hypotension, unspecified; F41.1 Generalized anxiety disorder; I21.A1 Myocardial infarction type 2; K21.9 Gastro-esophageal reflux disease without esophagitis; F03.C4 Unspecified dementia, severe, with anxiety; Z91.81 History of falling; Z88.0 Allergy status to penicillin; Z88.2 Allergy status to sulfonamides; Z88.5 Allergy status to narcotic agent; Z91.012 Allergy to eggs; F32.A Depression, unspecified; E78.00 Pure hypercholesterolemia, unspecified; Z79.899 Other long term (current) drug therapy
CPT/HCPCS: 96365; 96375 ×2; 96361; 84443; 82550; 83735; 84484 ×3; 80048 ×2; 82803; 83880; 82140; 85025; 85610; 85730; 87086 ×2; 87186; 82948 ×4; 83605 ×2; 81001; 36415 ×2; 71045; 93306; 93356; 99291; 93005; 36600; 84145; 84132; 96366; 94640; G0378 ×29; J1938; J3490 ×3; 94664

== ENCOUNTER 2025-07-03 15:33 | Emergency (ER) | payer OTHER, MEDICAID ==
[~2025-07-03] VITALS: Ht 144.8 cm; Wt 47.6 kg
[~2025-07-03 15:33] MED LIST changes: -ACET-2247 PO; -ALPR0.5T8 PO; +CARB-283 OP; +CLOP75TA32 PO; -DONE5TAB5 PO; +FERR-72 PO; -FERS325 PO; -ISOS30TA11 PO; -LACT10SO9 PO; +LIDO-15 TP; +MEGE400O39 PO; -MEGE40TA30 PO; +MELA10TA10 SL; +MEMA10TA21 PO; -MEMANtine HCL 5 MG TABLET PO; -METO25TA6 PO; -ONDA-104 PO; -PANT20TA18 PO; +RANO500T6 PO; +SIME80TA12 PO; -[UNRECOGNIZED DRUG - OTHER]
--- NOTE | 2025-07-03 16:37 | ERN ---
General Chief Complaint: Other Problems Stated Complaint: OTHER PROBLEMS Time Seen by MD: 15:35 Source: patient, EMS History of Present Illness Initial Comments Patient is a 89-year-old female brought in by EMS for abnormalities in her tongue. Per EMS patient has been having her tongue red. EMS states that patient is not eating like she should. Allergies: Coded Allergies: Penicillins (Unverified Allergy, Unknown, 10/17/21) Sulfa (Sulfonamide Antibiotics) (Unverified Allergy, Unknown, 10/17/21) bisacodyl (Unverified Allergy, Unknown, 10/17/21) ciprofloxacin (Unverified Allergy, Unknown, 10/17/21) doxycycline (Unverified Allergy, Unknown, 10/17/21) egg (Unverified Allergy, Unknown, 10/17/21) influenza virus vacc trivalent, split (Unverified Allergy, Unknown, 10/17/21) levofloxacin (Unverified Allergy, Unknown, 10/17/21) Home Meds Reported Medications Clopidogrel Bisulfate (Clopidogrel) 75 Mg Tablet, 1 TAB PO DAILY for 30 Days, # 30 TAB 0 Refills 12/20/24 Ranolazine (Ranolazine ER) 500 Mg Tab.er.12h, 1 TAB PO BID for 30 Days, #60 TAB 0 Refills 12/20/24 Melatonin (Melatonin) 10 Mg Tab.subl, 1 TAB SL HS for 30 Days, #30 TAB 0 Refills 12/20/24 Nitroglycerin (Nitroglycerin) 0.4 Mg Tab.subl, 1 TAB SL AD for chest pain, #25 TAB 0 Refills 1st sign of attack; may repeat every 5 mins; if pain persists after 3 in 15 min, medical attention is recommended 11/19/24 Simethicone (Simethicone) 80 Mg Tab.chew, 80 MG PO Q6HPRN PRN for GI GAS, TAB.CHEW 11/19/24 Ferrous Sulfate (Ferrous Sulfate) 325 Mg (65 Mg Iron) Tablet, 1 TAB PO DAILY for 30 Days, #30 TAB 0 Refills 11/19/24 Megestrol Acetate (Megestrol Acetate Susp) 400 Mg/10 Ml (40 Mg/Ml) Susp, 10 ML PO DAILY for 30 Days, #300 ML 0 Refills 11/19/24 Aspirin (Aspirin) 81 Mg Tab.chew, 1 TAB PO DAILY for 30 Days, #30 TAB 0 Refills 11/19/24 Carboxymethylcellulose Sodium (Artificial Tears) 1 % Drops, 1 DROP OP BID for 30 Days, #15 ML 0 Refills 11/19/24 Furosemide (Furosemide) 40 Mg Tablet, 40 MG PO BID, TAB 11/19/24 Memantine HCl (Memantine HCl) 10 Mg Tablet, 1 TAB PO BID for 30 Days, #60 TAB 0 Refills 11/19/24 Hydroxyzine HCl (Hydroxyzine HCl) 25 Mg Tablet, 1 TAB PO TID for anxiety for 30 Days, #90 TAB 0 Refills 11/19/24 Atorvastatin Calcium (Atorvastatin Calcium) 40 Mg Tablet, 1 TAB PO HS for 30 Days, #30 TAB 0 Refills 11/19/24 Gabapentin (Gabapentin) 100 Mg Capsule, 100 MG PO HS, CAP 11/19/24 Famotidine (Famotidine) 20 Mg Tablet, 1 TAB PO DAILY for 30 Days, #60 TAB 0 Refills 11/19/24 Docusate Sodium (Docusate Sodium) 100 Mg Capsule, 100 MG PO HS, CAP 11/19/24 Buspirone HCl (Buspirone HCl) 5 Mg Tablet, 1 TAB PO TID for 30 Days, #60 TAB 0 Refills 11/19/24 Potassium Chloride (Potassium Chloride) 10 Meq Capsule.er, 1 CAP PO BID for 30 Days, #30 CAP 0 Refills 11/19/24 Lidocaine HCl (Lidocaine HCl) 4 % Adh..patch, 1 PATCH TP DAILY for 10 Days, #10 PATCH 0 Refills 11/19/24 Past Medical History Past Medical History: CHF, Dementia, Diabetes-Type II, High Cholesterol, Hypertension Medical History Other: PULMONARY FIBROSIS Past Surgical History: Unknown Social History Social History: Negative, Lives with family Female( History) History: Not Applicable ROS Dictation CONSTITUTIONAL: No chills, no fever, weakness, no diaphoresis, malaise. HEAD/FACE: No signs of trauma. EENT: No eye pain, no blurred vision, no tearing, no double vision, no ear pain, no ear discharge, no nose pain, no nasal congestion, no throat pain, no throat swelling, no mouth pain. RESPIRATORY: No cough, no orthopnea, no SOB, no stridor, no wheezing. CARDIOVASCULAR: No chest pain, no edema, no palpitations, no syncope. GASTROINTESTINAL/ABDOMINAL: No abdominal pain, no constipation, no diarrhea, no nausea, no vomiting. GENITOURINARY: No abnormal discharge, no dysuria, no frequent urination, no hematuria. No complaints of pain in the genitals. Physical Exam Physical Exam Dictation VITAL SIGNS: Reviewed. GENERAL APPEARANCE: Alert, oriented x1, no acute distress, HEAD AND FACE: Non-traumatic. EYES: PERRL, pink conjunctivas, eyelid no trauma, anterior chamber clear. EARS: Pinnas intact and no signs of trauma or erythema. Ear canals clear and no discharge. TMs no erythema. NOSE: No discharge, no bleeding. OROPHARYNX: Mouth normal, teeth no caries, tongue pink. Pharynx clear, no erythema. Tonsils no exudates, no abscesses noted. Mucous membrane moist. NECK: Supple, non-tender, no thyromegaly, no masses, no JVD, no bruits. BREAST: Deferred. Results Laboratory and Microbiology Lab and Micro Result Laboratory Tests Test 07/03/25 16:27 07/03/25 17:07 White Blood Count 5.3 K/uL (4.8-10.8) Red Blood Count 2.92 MIL/uL (4.00-5.50) L Hemoglobin 9.1 g/dL (12.0-16.0) L Hematocrit 28.4 % (36-48) L Mean Corpuscular Volume 97.3 fL (79-99) Mean Corpuscular Hemoglobin 31.2 pg (27.0-33.0) Mean Corpuscular Hemoglobin Concent 32.0 g/dL (32.0-36.0) Red Cell Distribution Width 15.9 % (11.0-15.5) H Platelet Count 170 K/uL (130-400) Mean Platelet Volume 13.1 fL (7.5-10.5) H Immature Granulocyte % (Auto) 0.2 % (0-1) Neutrophils (%) (Auto) 48.0 % (40.0-77.0) Lymphocytes (%) (Auto) 28.9 % (21.0-51.0) Monocytes (%) (Auto) 13.8 % (3.0-13.0) H Eosinophils (%) (Auto) 8.3 % (0.0-8.0) H Basophils (%) (Auto) 0.8 % (0.0-5.0) Neutrophils # (Auto) 2.5 K/uL (1.8-7.7) Lymphocytes # (Auto) 1.5 K/uL (1.0-4.8) Monocytes # (Auto) 0.7 K/uL (0.1-1.0) Eosinophils # (Auto) 0.44 K/uL (0.00-0.70) Basophils # (Auto) 0.04 K/uL (0.00-0.20) Absolute Immature Granulocyte (auto 0.01 K/uL (0-1) Nucleated Red Blood Cells 0.0 % (0.0-0.19) Sodium Level 141 mmol/L (136-145) Potassium Level 3.3 mmol/L (3.5-5.1) L Chloride Level 102 mmol/L (101-111) Carbon Dioxide Level 29 mmol/L (21-32) Blood Urea Nitrogen 17 mg/dL (7-18) Creatinine 1.5 mg/dL (0.5-1.0) H Glomerular Filtration Rate Calc 34 mL/min (>90) Random Glucose 85 mg/dL (70-105) Total Calcium 8.8 mg/dL (8.5-10.1) Troponin I High Sensitivity 46 ng/L (4-50) Urine Color LIGHT-YELLOW (YELLOW) Urine Appearance CLEAR (CLEAR) Urine pH 6.0 (5.0-8.0) Urine Specific [place] 1.011 (1.001-1.031) Urine Protein NEGATIVE mg/dL (NEGATIVE) Urine Glucose (UA) NEGATIVE mg/dL (NEGATIVE) Urine Ketones 5 mg/dL (NEGATIVE) H Urine Occult Blood NEGATIVE (NEGATIVE) Urine Nitrate NEGATIVE (NEGATIVE) Urine Bilirubin NEGATIVE mg/dL (NEGATIVE) Urine Urobilinogen 0.2 mg/dL (0.2-1.0) Urine Leukocyte Esterase NEGATIVE Nico/uL Labs Reviewed?: Yes EKG/XRAY/US/CT/MRI X-RAY Comment Chest x-ray no change from previous one MDM MDM: Differential diagnosis: History of dementia, weakness, Rationale: Tests considered and ordered secondary to shared decision making include: Previous outside records reviewed: Old ER visits. Risk of complication and/or morbidity or mortality of patient management: None Medications-Per medication reconciliation Need for hospitalization: Patient does not meet criteria for hospitalization. Need for emergency major/minor surgery: No Patient is a an 89-year-old female due to an abnormality leaning thumb. On visual inspection no Wednesday membrane has been these present. Laboratory workup mildly elevated with a creatinine from 01.1-1.5 patient is mildly dehydrated was hydrated with IV fluids we [facility] and [facility]. Patient does has a history of CHF so is on Lasix for diuresis ED Course Orders Procedure Category Date Status Time Cbc With Differential LAB 07/03/25 Complete 16:03 Troponin I High LAB 07/03/25 Complete Sensitivity 16:03 Urinalysis Profile LAB 07/03/25 Complete 16:03 Basic Metabolic Panel LAB 07/03/25 Complete 16:03 Chest 1vw RAD 07/03/25 Taken 17:19 0.9%Nacl 1000ml (Ns PHA 07/03/25 Complete 1000ml) 17:30 Current Medications Medications (Trade) Dose Ordered Sig/Sonali Route PRN Reason Start Time Stop Time Status Last Admin Dose Admin Sodium Chloride 1,000 ml @ 0 mls/hr ONCE ONCE IV 07/03/25 17:30 07/03/25 17:31 DC Vital Signs Date Time Temp Pulse Resp B/P (MAP) Pulse Ox O2 Delivery O2 Flow Rate FiO2 07/03/25 16:31 97.9 78 18 136/57 97 Room Air* 0 21 07/03/25 15:48 98.4 81 16 154/75 96 Room Air 0 DX & DISP Disposition: Discharge Departure Impression: Primary Impression: Dehydration Condition: Stable Additional Instructions: FOLLOW-UP WITH PRIMARY CARE PROVIDER IN 1 TO 2 DAYS. TAKE MEDICATIONS DIRECTED HERE IN THE EMERGENCY ROOM. OKAY TO CONTINUE HOME MEDICATIONS UNLESS OTHERWISE DISCUSSED DURING YOUR VISIT IN THE EMERGENCY ROOM TODAY. RETURN TO YOUR NEAREST EMERGENCY ROOM IF SYMPTOMS WORSEN OR IF THERE IS NO IMPROVEMENT. CALL 911 IF YOU NEED IMMEDIATE ASSISTANCE. TAKE TYLENOL [id number] NEEDED AND IF NO CONTRAINDICATIONS ARE PRESENT. INCREASE ORAL HYDRATION. A WOUND CULTURE OR URINE CULTURE WAS ORDERED HERE IN THE EMERGENCY ROOM DEPARTMENT PLEASE FOLLOW-UP WITH PRIMARY CARE PROVIDER AND ADVISE THEM TO GET REPORTS FROM OUR FACILITY. IF YOU HAD ANY BETHANY WRAP/SPLINTS THAT WERE APPLIED HERE, PLEASE DO NOT REMOVE THEM UNTIL YOU SEE YOUR PRIMARY CARE OR SPECIALTY. Referrals: Referrals: PRANAV XIE MD (PCP) Time of Disposition: 17:54 CHAN SOLANO MD Jul 03, 2025 16:37
[2025-07-03 16:42] LABS: IMMATURE GRANULOCYTE ABSOLUTE 0.01 K/uL (0-1); NUCLEATED RED BLOOD CELLS 0.0 % (0.0-0.19); PLATELET COUNT (AUTO) 170 K/uL (130-400); RED BLOOD CELL COUNT(AUTO) 2.92 MIL/uL (4.00-5.50); RED CELL DISTRIBUTION WIDTH 15.9 % (11.0-15.5); WHITE BLOOD COUNT (AUTO) 5.3 K/uL (4.8-10.8)
[2025-07-03 16:50] LABS: CREATININE 1.5 mg/dL (0.5-1.0); GLOMERULAR FILTR. RATE CALC 34.0 mL/min (>90); GLUCOSE,RANDOM 85.0 mg/dL (70-105); SODIUM SERUM 141.0 mmol/L (136-145); UREA NITROGEN, BLOOD 17.0 mg/dL (7-18)
[2025-07-03 17:18] LABS: APPEARANCE,URINE CLEAR (CLEAR); GLUCOSE, URINE (UA) NEGATIVE (NEGATIVE); LEUKOCYTE ESTERASE ,URINE NEGATIVE Leu/uL (NEGATIVE); NITRATE,URINE NEGATIVE (NEGATIVE); OCCULT BLOOD,URINE NEGATIVE (NEGATIVE)
[2025-07-03 17:22] LABS: ADD UA MICROSCOPIC NO
[2025-07-03] MEDS ORDERED: 0.9%NACL 1000ML 1,000 ML IV ONE (17:30)
--- NOTE | 2025-07-03 18:05 | NUR ---
CALLED [facility] TO SET UP TRANSPORT FOR PT BACK TO [facility].
[2025-07-03 18:25] VITALS: BP 132/50; PULSE 74; RESP 18; TEMP 97.9; O2SAT 95
--- NOTE | 2025-07-03 22:39 | HMCIMG ---
STUDY CR chest, 1 view CLINICAL HISTORY Weakness TECHNIQUE Single frontal radiograph of the chest COMPARISON Chest radiograph dated 01/28/2025 at 21:25 FINDINGS LUNGS No focal consolidation, pulmonary mass, or acute infiltrate is identified. PLEURAL SPACES There is mild blunting of the left costophrenic angle, compatible with a small left pleural effusion. No pneumothorax is seen. MEDIASTINUM The cardiac silhouette is mildly enlarged, consistent with mild cardiomegaly. There is calcification of the aortic arch. Mediastinal contours are otherwise within normal limits. BONES No acute osseous abnormality is identified. IMPRESSION * Mild cardiomegaly with aortic arch calcification. * Small left pleural effusion, accounting for blunting of the left costophrenic angle. /[place]
== END 2025-07-03 19:05 ==
LOC: EDH 15:33
DX: E86.0 Dehydration (principal); E11.9 Type 2 diabetes mellitus without complications; E78.00 Pure hypercholesterolemia, unspecified; I11.0 Hypertensive heart disease with heart failure; I50.9 Heart failure, unspecified; F03.90 Unspecified dementia, unspecified severity, without behavioral disturbance, psychotic disturbance, mood disturbance, and anxiety; Z88.0 Allergy status to penicillin; Z88.2 Allergy status to sulfonamides; Z88.1 Allergy status to other antibiotic agents; Z91.0120 Allergy to eggs, unspecified; Z88.7 Allergy status to serum and vaccine; Z79.82 Long term (current) use of aspirin; Z79.899 Other long term (current) drug therapy; Z79.02 Long term (current) use of antithrombotics/antiplatelets
CPT/HCPCS: 36415; 71045; 80048; 81003; 84484; 85025; 99284